=== PATIENT | female | born 1990 | race Caucasian/White ===

== ENCOUNTER 2022-09-05 20:04 | Emergency (ER) | payer BC ==
[~2022-09-05] VITALS: Ht 167.6 cm; Wt 93.0 kg
[2022-09-05] VITALS (7 sets, daily range): BP systolic 97–123; BP diastolic 65–86
[2022-09-05 20:50] LABS: BASO% 0.9 % (0-3); EOS% 0.2 % (0-8); HEMATOCRIT 41.8 % (37.0-47.0); HEMOGLOBIN 13.9 g/dl (12.0-16.0); LYMPH% 15.8 % (15-41); MEAN CELL VOLUME 90.3 fL CALC (80.0-100.0); MEAN CORPUSCULAR HGB CONC 33.3 g/dL CAL (32.0-36.0); MONO% 8.6 % (2-13); NEUT# 3.48 thou/uL (2.00-7.15); NEUT% 74.5 % (42-76); RED BLOOD COUNT 4.63 mill/uL (4.20-5.60)
[2022-09-05 21:00] LABS: HCG SERUM/URINE (NEG/POS) NEGATIVE (NEGATIVE)
[2022-09-05] MEDS ORDERED: TAM75CAP PO ×2 (21:45→23:39)
== END 2022-09-05 22:07 | disposition home or self-care (01) | DRG 195 ==
LOC: ED 20:04
PROVIDERS: Family Medicine
DX: J10.1 Influenza due to other identified influenza virus with other respiratory manifestations (principal)